=== PATIENT | male | born 2000 | race Caucasian/White ===

== ENCOUNTER 2020-01-09 18:37 | Emergency (ER) | payer OTHER ==
[~2020-01-09] VITALS: Ht 177.8 cm; Wt 68.2 kg
[2020-01-09 18:45] VITALS: TEMP 98.3
[2020-01-09 19:30] VITALS: BP 116/75; PULSE 71
== END 2020-01-09 19:34 | disposition home or self-care (01) ==
LOC: COL.ER 18:37
DX: S09.90XA Unspecified injury of head, initial encounter (principal); S01.111A Laceration without foreign body of right eyelid and periocular area, initial encounter; W50.0XXA Accidental hit or strike by another person, initial encounter; Y93.67 Activity, basketball

== ENCOUNTER → 2020-01-16 | Outpatient (CLI) | payer OTHER ==
[2020-01-16 17:15] VITALS: BP 99/59; PULSE 85; TEMP 98
== END ==
LOC: COL.ER 17:08
DX: Z48.02 Encounter for removal of sutures (principal)